=== PATIENT | female | born 1970 | race Caucasian/White ===

== ENCOUNTER → 2016-08-10 | Outpatient (CLI) | payer OTHER ==
[~2016-08-10] MED LIST: EXCEDRIN DPS1 TAB PO; PERCOCET 5 DPS1 TAB PO; RELAFEN DPS750 MG PO; TOPAMAX100 MG PO; ZOMIG2.5 MG PO; ZYRTEC DPS10 MG PO
== END | disposition home or self-care (01) ==
LOC: PTH.S 08-09 15:15
DX: R19.7 Diarrhea, unspecified (principal)